=== PATIENT | female | born 1975 | race Caucasian/White ===

== ENCOUNTER 2019-04-30 23:20 | Inpatient (IN) | payer SELFPAY ==
[2019-04-30 23:25] VITALS: BMI 23.8
--- NOTE | 2019-04-30 23:27 | ED_ITS ---
Entered by Nara Crouch, acting as scribe for HPI - Overdose General: Chief Complaint: Overdose Stated Complaint: OVERDOSE Time Seen by Provider: 04/30/19 23:24 Source: patient and EMS Mode of arrival: EMS Limitations: no limitations History of Present Illness: HPI Narrative: 44 yo female presents with intentional overdose. pt states this occured about 10 pm. pt states she took 20 25mg of Seroquel and sliced her Left wrist. pt is unable to stay awake. MD complaint: intentional overdose Onset (ago): day(s) (10 pm) Substance Ingested: seroquel: Strength of Substance: 25 Number of Pills Ingested: 20 Total Dose: 500 Time of Ingestion: 10:00 : Intent: suicide attempt How Overdose Was Discovered: other (EMS called to residents) Context: Accidental Overdose: other (wanted to ) Associated symptoms: depression Treatments Prior to Arrival: IV fluids (by EMS) Review of Systems General: Reports: ROS unobtainable due to medical condition and ROS unobtainable due to mental status Const: Reports: fatigue Physical Exam Const: EXAM LIMITATIONS: altered mental status GENERAL APPEARANCE: lethargic ORIENTATION/CONSCIOUSNESS: Yes lethargic HENMT: COMMON NORMALS: normocephalic, head/scalp atraumatic, hearing grossly normal bilaterally, external ears normal, EAC's normal, external nose normal and moist oral mucous membranes HEAD & SCALP: normal to inspection, normocephalic and atraumatic FACE & SINUS: normal facial exam and face symmetric NOSE: external nose normal and nares normal EXTERNAL EAR: Yes external ears normal EXTERNAL AUDITORY CANAL: EAC's normal MOUTH: oral and palatal mucosa normal and tongue normal Eye: COMMON NORMALS: PERRL, EOMs intact bilaterally, conjunctivae normal and no scleral icterus GENERAL EYE: normal appearance of both eyes and normal light reflex CONJUNCTIVA: Yes conjunctivae normal SCLERA: sclerae normal CORNEA: Yes corneas normal PUPIL: Yes PERRL DIRECT OPHTHALMOSCOPY: Yes normal light reflex Neck/C-Spine: COMMON NORMALS: full ROM, no lymphadenopathy, supple, no meningeal signs and no JVD GENERAL: Yes normal visual inspection and Yes trachea midline CERVICAL SPINE: Yes cervical ROM normal Chest: COMMONS NORMALS: inspection of chest normal and palpation of chest normal Resp: COMMON NORMALS: normal respiratory effort, no retractions, no use of accessory muscles and clear to auscultation bilaterally EFFORT & INSPECTION: Yes able to speak in complete sentences AUSCULTATION: clear to auscultation bilaterally Cardio: COMMON NORMALS: no JVD, regular rate, regular rhythm, S1 normal heart sound, S2 normal heart sound, no gallops, no clicks, no murmurs and no rub JUGULAR VENOUS DISTENTION: no JVD RATE: regular rate RHYTHM: regular rhythm HEART SOUNDS: S1 normal and S2 normal GI: COMMON NORMALS: soft to palpation, non-tender, no hepatosplenomegaly and no masses INSPECTION: Yes normal to inspection PALPATION: Yes soft and Yes no hepatosplenomegaly : COMMON NORMALS: Yes no CVA tenderness BLADDER/KIDNEY EXAM: Yes no CVA tenderness Back/Pelvis: COMMON NORMALS: no CVA tenderness, thoracic and lumbar spine normal to inspection, no thoracic nor lumbar tenderness and thoraco-lumbar ROM normal Extremity: COMMON NORMALS: normal to inspection, full ROM, normal capillary refill, no joint enlargement, no clubbing, cyanosis or edema and no calf tenderness Neuro: COMMON NORMALS: CN's II-XII intact bilaterally, moves all extremities, no focal motor deficits and no sensory deficits noted SENSORIUM/ORIENTATION: Yes lethargic MENINGEAL SIGNS: Yes no meningeal signs Psych: MOOD & AFFECT: Yes depressed mood Skin: WOUNDS: Yes wounds noted (multiple abrasions to L wrist. ) Course Vital Signs: Vital signs: Vital Signs Temperature 97.7 F 04/30/19 23:42 Pulse Rate 102 H 05/01/19 01:09 Respiratory Rate 16 05/01/19 01:09 Blood Pressure 91/60 05/01/19 01:09 Pulse Oximetry 96 05/01/19 01:09 MDM - Overdose MDM Narrative: Medical decision making narrative: The case was reviewed with poison control. We will watch for seizures, depressed central nervous system and QT prolongation. Currently the patient is still very confused and somnolent. Her GCS remains 12-13. The case was reviewed with Dr. Ramírez and she agrees to admit to the ICU until the patient is medically cleared. A 96- hour hold has been placed on the patient. Lab Data: Attestation: I reviewed the patient's lab results. Labs: Lab Results 04/30/19 04/30/19 04/30/19 Range/Units 23:42 23:42 23:42 WBC 5.5 (4.0-10.0) 10^3/ uL RBC 3.83 L (4.1-5.3) 10^6/u L Hgb 12.0 (11.5-15.3) g/dL Hct 36.9 L (37.0-47.0) % MCV 96.3 (81-99) fL MCH 31.3 (28.0-34.0) pg MCHC 32.5 (30.0-36.0) g/dL RDW 12.6 (12.1-15.1) % Plt Count 222 (130-400) 10^3/c mm MPV 8.6 (7.4-10.4) fL Neut % (Auto) 72.3 % Lymph % (Auto) 19.2 % [place] % (Auto) 6.9 % Eos % (Auto) 0.7 % Baso % (Auto) 0.5 % Neut # (Auto) 4.0 (1.8-7.7) 10^3/u L Lymph # (Auto) 1.1 (0.8-4.8) 10^3/u L [place] # (Auto) 0.4 (0.2-0.9) 10^3/u L Eos # (Auto) 0.0 (0.0-0.8) 10^3/u L Baso # (Auto) 0.0 (0.0-0.1) 10^3/u L Nucleated RBC % (a uto) 0 % Nucleated RBCs # 0.0 /100WBC PT (10.5-13.3) SECO NDS INR (0.8-1.2) APTT (23.9-36.7) SECO NDS Specimen Type Sample Site ABG pH (7.35-7.45) ABG pCO2 (35-45) mmHg ABG pO2 (80.0-100.0) mmH g ABG HCO3 (22-26) mmol/L ABG Base Excess (-2.0-2.0) mmol/ L Boy Test Hematocrit (37-47) % O2 Delivery Device FiO2 % Field Machinist ID Sodium 138 (136-145) mmol/L Potassium 3.7 (3.5-5.1) mmol/L Chloride 105 (98-107) mmol/L Carbon Dioxide 19 L (22-29) mmol/L Anion Gap 17.7 (5-19) BUN 12 (6-20) mg/dL Creatinine 1.3 H (0.5-0.9) mg/dL GFR Calculation 44.3 L (90-130) mL/min Glucose 143 H (65-115) mg/dL Calculated Osmolal ity 285 (285-295) mOsm/k g Calcium 8.7 (8.5-10.5) mg/dL Magnesium 2.3 (1.7-2.3) mg/dL Total Bilirubin 0.2 (0.15-1.2) mg/dL AST 27 (0-32) U/L ALT 24 (0-33) U/L Alkaline Phosphata se 66 (35-105) IU/L Creatine Kinase 421 H* (26-192) U/L Troponin T Baselin e (0-10) ng/mL Total Protein 5.9 L (6.6-8.7) g/dL Albumin 3.4 L (3.5-5.2) g/dL Globulin 2.5 (1.3-4.6) g/dL TSH 0.85 (0.27-4.20) uIU/ mL HCG, Qual (Negative) Urine Color (Yellow) Urine Appearance (CLEAR) Urine pH (5-7) Ur Specific Gravit y (1.005-1.030) Urine Protein (Negative) Urine Glucose (UA) (Normal) Urine Ketones (Negative) Urine Blood (Negative) Urine Nitrate (Negative) Urine Bilirubin (NEGATIVE) Urine Urobilinogen (Negative) mg/dL Ur Leukocyte Lauryn ase (Negative) Urine RBC (0-2) /hpf Urine WBC (0-5) /hpf Ur Squamous Epith Cells (0-5) Urine Bacteria (NONE) Salicylates < 0.3 L (3-10) mg/dL Urine Opiates Scre en (Negative) ng/mL Acetaminophen < 5.0 L (10-30) ug/mL Ur Barbiturates Sc reen (Negative) ng/mL Phenytoin 0.8 L (10-20) ug/mL Valproic Acid 2.8 L (50-100) mcg/mL Carbamazepine 2.0 L (4.0-12.0) ug/mL Ur Phencyclidine S crn (Negative) ng/mL Ur Amphetamines Sc reen (Negative) ng/mL U Benzodiazepines Scrn (Negative) ng/mL [place] 0.1 L (0.6-1.2) mmol/L Urine Cocaine Scre en (Negative) ng/mL U Marijuana (THC) Screen (Negative) ng/mL Ethyl Alcohol < 10 (0-10) mg/dL 04/30/19 04/30/19 04/30/19 Range/Units 23:42 23:42 23:42 WBC (4.0-10.0) 10^3/ uL RBC (4.1-5.3) 10^6/u L Hgb (11.5-15.3) g/dL Hct (37.0-47.0) % MCV (81-99) fL MCH (28.0-34.0) pg MCHC (30.0-36.0) g/dL RDW (12.1-15.1) % Plt Count (130-400) 10^3/c mm MPV (7.4-10.4) fL Neut % (Auto) % Lymph % (Auto) % [place] % (Auto) % Eos % (Auto) % Baso % (Auto) % Neut # (Auto) (1.8-7.7) 10^3/u L Lymph # (Auto) (0.8-4.8) 10^3/u L [place] # (Auto) (0.2-0.9) 10^3/u L Eos # (Auto) (0.0-0.8) 10^3/u L Baso # (Auto) (0.0-0.1) 10^3/u L Nucleated RBC % (a uto) % Nucleated RBCs # /100WBC PT 13.90 H (10.5-13.3) SECO NDS INR 1.04 (0.8-1.2) APTT 26.6 (23.9-36.7) SECO NDS Specimen Type Sample Site ABG pH (7.35-7.45) ABG pCO2 (35-45) mmHg ABG pO2 (80.0-100.0) mmH g ABG HCO3 (22-26) mmol/L ABG Base Excess (-2.0-2.0) mmol/ L Boy Test Hematocrit (37-47) % O2 Delivery Device FiO2 % Field Machinist ID Sodium (136-145) mmol/L Potassium (3.5-5.1) mmol/L Chloride (98-107) mmol/L Carbon Dioxide (22-29) mmol/L Anion Gap (5-19) BUN (6-20) mg/dL Creatinine (0.5-0.9) mg/dL GFR Calculation (90-130) mL/min Glucose (65-115) mg/dL Calculated Osmolal ity (285-295) mOsm/k g Calcium (8.5-10.5) mg/dL Magnesium (1.7-2.3) mg/dL Total Bilirubin (0.15-1.2) mg/dL AST (0-32) U/L ALT (0-33) U/L Alkaline Phosphata se (35-105) IU/L Creatine Kinase (26-192) U/L Troponin T Baselin e 11 H (0-10) ng/mL Total Protein (6.6-8.7) g/dL Albumin (3.5-5.2) g/dL Globulin (1.3-4.6) g/dL TSH (0.27-4.20) uIU/ mL HCG, Qual Negative (Negative) Urine Color (Yellow) Urine Appearance (CLEAR) Urine pH (5-7) Ur Specific Gravit y (1.005-1.030) Urine Protein (Negative) Urine Glucose (UA) (Normal) Urine Ketones (Negative) Urine Blood (Negative) Urine Nitrate (Negative) Urine Bilirubin (NEGATIVE) Urine Urobilinogen (Negative) mg/dL Ur Leukocyte Lauryn ase (Negative) Urine RBC (0-2) /hpf Urine WBC (0-5) /hpf Ur Squamous Epith Cells (0-5) Urine Bacteria (NONE) Salicylates (3-10) mg/dL Urine Opiates Scre en (Negative) ng/mL Acetaminophen (10-30) ug/mL Ur Barbiturates Sc reen (Negative) ng/mL Phenytoin (10-20) ug/mL Valproic Acid (50-100) mcg/mL Carbamazepine (4.0-12.0) ug/mL Ur Phencyclidine S crn (Negative) ng/mL Ur Amphetamines Sc reen (Negative) ng/mL U Benzodiazepines Scrn (Negative) ng/mL [place] (0.6-1.2) mmol/L Urine Cocaine Scre en (Negative) ng/mL U Marijuana (THC) Screen (Negative) ng/mL Ethyl Alcohol (0-10) mg/dL 04/30/19 05/01/19 05/01/19 Range/Units 23:45 00:30 00:30 WBC (4.0-10.0) 10^3/ uL RBC (4.1-5.3) 10^6/u L Hgb (11.5-15.3) g/dL Hct (37.0-47.0) % MCV (81-99) fL MCH (28.0-34.0) pg MCHC (30.0-36.0) g/dL RDW (12.1-15.1) % Plt Count (130-400) 10^3/c mm MPV (7.4-10.4) fL Neut % (Auto) % Lymph % (Auto) % [place] % (Auto) % Eos % (Auto) % Baso % (Auto) % Neut # (Auto) (1.8-7.7) 10^3/u L Lymph # (Auto) (0.8-4.8) 10^3/u L [place] # (Auto) (0.2-0.9) 10^3/u L Eos # (Auto) (0.0-0.8) 10^3/u L Baso # (Auto) (0.0-0.1) 10^3/u L Nucleated RBC % (a uto) % Nucleated RBCs # /100WBC PT (10.5-13.3) SECO NDS INR (0.8-1.2) APTT (23.9-36.7) SECO NDS Specimen Type Arterial Sample Site Radial, right ABG pH 7.39 (7.35-7.45) ABG pCO2 38.4 (35-45) mmHg ABG pO2 89.7 (80.0-100.0) mmH g ABG HCO3 23.3 (22-26) mmol/L ABG Base Excess -1.4 (-2.0-2.0) mmol/ L Boy Test Pos Hematocrit 37.9 (37-47) % O2 Delivery Device None FiO2 21.0 % Field Machinist ID [id number] Sodium (136-145) mmol/L Potassium (3.5-5.1) mmol/L Chloride (98-107) mmol/L Carbon Dioxide (22-29) mmol/L Anion Gap (5-19) BUN (6-20) mg/dL Creatinine (0.5-0.9) mg/dL GFR Calculation (90-130) mL/min Glucose (65-115) mg/dL Calculated Osmolal ity (285-295) mOsm/k g Calcium (8.5-10.5) mg/dL Magnesium (1.7-2.3) mg/dL Total Bilirubin (0.15-1.2) mg/dL AST (0-32) U/L ALT (0-33) U/L Alkaline Phosphata se (35-105) IU/L Creatine Kinase (26-192) U/L Troponin T Baselin e (0-10) ng/mL Total Protein (6.6-8.7) g/dL Albumin (3.5-5.2) g/dL Globulin (1.3-4.6) g/dL TSH (0.27-4.20) uIU/ mL HCG, Qual (Negative) Urine Color Yellow (Yellow) Urine Appearance Clear (CLEAR) Urine pH 6 (5-7) Ur Specific Gravit y 1.015 (1.005-1.030) Urine Protein Neg (Negative) Urine Glucose (UA) Norm (Normal) Urine Ketones Negative (Negative) Urine Blood Neg (Negative) Urine Nitrate Negative (Negative) Urine Bilirubin Neg (NEGATIVE) Urine Urobilinogen Norm (Negative) mg/dL Ur Leukocyte Lauryn ase Negative (Negative) Urine RBC Rare (0-2) /hpf Urine WBC Rare (0-5) /hpf Ur Squamous Epith Cells Rare (0-5) Urine Bacteria Trace (NONE) Salicylates (3-10) mg/dL Urine Opiates Scre en Negative (Negative) ng/mL Acetaminophen (10-30) ug/mL Ur Barbiturates Sc reen Negative (Negative) ng/mL Phenytoin (10-20) ug/mL Valproic Acid (50-100) mcg/mL Carbamazepine (4.0-12.0) ug/mL Ur Phencyclidine S crn Negative (Negative) ng/mL Ur Amphetamines Sc reen Positive H (Negative) ng/mL U Benzodiazepines Scrn Negative (Negative) ng/mL [place] (0.6-1.2) mmol/L Urine Cocaine Scre en Negative (Negative) ng/mL U Marijuana (THC) Screen Negative (Negative) ng/mL Ethyl Alcohol (0-10) mg/dL EKG Data^: EKG 1: Attestation: I personally reviewed and interpreted this EKG as follows: EKG interpretation date: 05/01/19 EKG interpretation time: 00:38 Interpretation: Normal sinus rhythm at 105 beats a minute, nonspecific ST-T wave changes. Discharge Plan Discharge Patient Disposition: Admitted As Inpatient Clinical Impression: Drug overdose Condition: Stable Prescriptions: No Action Unable to Assess RF: 0 Referrals: Pedro Pablo Pierre MD [Primary Care Provider] - Coding Level of Care Code ED Laminate Floor Installer for Chg Fwd Exam Comprehensive The documentation recorded by the Miko stein Bridget Annette, accurately reflects the service I personally performed and the decisions made by , Мария Mast Apr 30, 2019 23:20
--- NOTE | 2019-04-30 23:31 | XR_ITS ---
WS: [id number] XR chest 1V portable [id number] REASON FOR EXAM: AMS/OVERDOSE FINDINGS: The heart mediastinum were normal. Chronic interstitial changes both lung miguel no active pneumonia, pleural effusion, pulmonary edema, or mass effect. The hilum and apices are normal. No osseous abnormalities. XR/XR chest 1V portable [id number] IMPRESSION: Mild interstitial changes bilaterally.
--- NOTE | 2019-04-30 23:32 | ECG_ITS ---
Measurements Intervals [place] Rate: 78 P: 81 AR: 129 QRS: 90 QRSD: 82 T: 84 QT: 394 QTc: 451 SINUS RHYTHM WITH SINUS ARRHYTHMIA No previous ECG available for comparison Electronically Signed On 05-01-2019 9:11:46 CDT by Jojo Jimenez [email or web address]
--- NOTE | 2019-04-30 23:37 | PC.NURSE ---
Spoke with LONG Beltrán at Poison Control, advised to watch for SCHOOL CLERK depression, magnesium levels, and other labs.
[2019-04-30 23:42] VITALS: BP 100/66; PULSE 108; RESP 16; TEMP 36.5; O2SAT 95
[2019-04-30 23:53] LABS: ABG PCO2 38.4 mmHg (35-45); ABG PH Result 7.39 (7.35-7.45); Arterial Blood Gas Hematocrit 37.9 % (37-47); Base Excess ABG -1.4 mmol/L (-2.0-2.0); Blood Gas Allen Test Pos; Blood Gas Sample Site Radial, right; Blood Gas Sample Type Arterial; HCO3 ABG 23.3 mmol/L (22-26); PO2 ABG 89.7 mmHg (80.0-100.0)
[2019-04-30 23:55] LABS: Basophils % 0.5 %; Eosinophils % 0.7 %; Hematocrit 36.9 % (37.0-47.0); Lymphocytes # 1.1 10^3/uL (0.8-4.8); Lymphocytes % 19.2 %; Mean Corpuscular HGB Conc 32.5 g/dL (30.0-36.0); Mean Corpuscular Hemoglobin 31.3 pg (28.0-34.0); Mean Corpuscular Volume 96.3 fL (81-99); Mean Platelet Volume 8.6 fL (7.4-10.4); Monocytes # 0.4 10^3/uL (0.2-0.9); Monocytes % 6.9 %; Neutrophils % 72.3 %; Nucleated Red Blood Cells % 0 %; Platelet Count 222 10^3/cmm (130-400); Red Blood Count 3.83 10^6/uL (4.1-5.3); Red Cell Distribution Width 12.6 % (12.1-15.1); White Blood Count 5.5 10^3/uL (4.0-10.0)
[2019-05-01] VITALS (70 sets, daily range): BP systolic 91–156; BP diastolic 52–86; PULSE 60–106; RESP 0–20; TEMP 36.6–37; O2SAT 94–100
[2019-05-01 00:02] LABS: HCG, Serum Qual Negative (Negative)
[2019-05-01 00:08] LABS: INR 1.04 (0.8-1.2)
[2019-05-01 00:09] LABS: Partial Thromboplastin Time 26.6 SECONDS (23.9-36.7)
[2019-05-01 00:13] LABS: Troponin(5th) Baseline 11 ng/mL (0-10)
[2019-05-01 00:49] LABS: Lithium 0.1 mmol/L (0.6-1.2)
[2019-05-01 00:52] LABS: Bacteria Urine TRACE; Bilirubin Urine Neg (NEGATIVE); Blood Urine Neg (Negative); Glucose Urine UA Norm (Normal); Ketones Urine Negative (Negative); Leukocyte Esterase Urine Negative (Negative); Nitrate Urine Negative (Negative); Protein Urine Neg (Negative); RBC Urine RARE /hpf (0-2); Specific Gravity, Urine 1.015 (1.005-1.030); Squamous Epithelial Cell Urine RARE (0-5); Urine Appearance Clear (CLEAR); Urine Color Yellow (Yellow); Urobilinogen Urine Norm (Negative); WBC Urine RARE /hpf (0-5); pH Urine 6 (5-7)
[2019-05-01 00:55] LABS: Amphetamines Screen Urine Positive (Negative); Barbiturates Screen Urine Negative (Negative); Benzodiazepines Screen Urine Negative (Negative); Cocaine Screen Urine Negative (Negative); Opiate Screen Urine Negative (Negative); PCP Screen Urine Negative (Negative); THC Screen Urine Negative (Negative)
[2019-05-01 00:59] LABS: Alanine Aminotransferase 24 U/L (0-33); Albumin Level 3.4 g/dL (3.5-5.2); Alkaline Phosphatase 66 IU/L (35-105); Aspartate Amino Transferase 27 U/L (0-32); Blood Urea Nitrogen 12 mg/dL (6-20); Calcium 8.7 mg/dL (8.5-10.5); Carbon Dioxide 19 mmol/L (22-29); Globulin 2.5 g/dL (1.3-4.6); Glomerular Filtration Rate 44.3 mL/min (90-130); Glucose 143 mg/dL (65-115); Magnesium 2.3 mg/dL (1.7-2.3); Phenytoin Dilantin 0.8 ug/mL (10-20); Thyroid Stimulating Hormone 0.85 uIU/mL (0.27-4.20); Total Bilirubin 0.2 mg/dL (0.15-1.2); Total Protein 5.9 g/dL (6.6-8.7); Valproic Acid Level 2.8 mcg/mL (50-100)
[2019-05-01 01:03] LABS: Acetaminophen < 5.0 ug/mL (10-30); Alcohol Level < 10 mg/dL (0-10); Salicylate < 0.3 mg/dL (3-10)
[2019-05-01 01:04] LABS: Creatine Phosphokinase 421 U/L (26-192)
[2019-05-01 01:10] LABS: Anion Gap 17.7 (5-19); Chloride 105 mmol/L (98-107); Osmolality Calculated 285 mOsm/kg (285-295); Potassium 3.7 mmol/L (3.5-5.1); Sodium 138 mmol/L (136-145)
--- NOTE | 2019-05-01 01:32 | ECG_ITS ---
Measurements Intervals [place] Rate: 105 P: 83 WA: 124 QRS: 92 QRSD: 72 T: 78 QT: 356 QTc: 472 SINUS TACHYCARDIA BORDERLINE RIGHT AXIS DEVIATION [QRS AXIS > 90] ABNORMAL RHYTHM ECG INTERPRETATION BASED ON A DEFAULT AGE OF 40 YEARS No previous ECG available for comparison Electronically Signed On 05-01-2019 9:12:32 CDT by Jojo Jimenez [id number]
[2019-05-01 02:07] LABS: Troponin 5 2HR 12.19 ng/mL (0-10); Troponin 5 2HR Delta 1.19 ABS# (0-10)
[2019-05-01] MEDS: sodium chloride 0.9% 1,000 ML 999 ML IV ×2 (02:40→02:46)
--- NOTE | 2019-05-01 02:43 | P.HP_ITS ---
Providers/Chief Complaint Admitting Physician: Jessica Ramírez MD Primary Care Provider: Pedro Pablo Pierre MD Chief Complaint: OVERDOSE History of Present Illness Mary Peres is a 44 year old female brought by EMS with h/o intentional drug overdose with seroquel. Patient states she may have taken ~20 pills but is unable to say for sure. she is lethargic, drowsy, difficult to stay awake. BP 90/60, HR 102/min, RR 16. Labs notable for cr 1.3, CK 421, negative bHCG, urine drug screen + amphetamines. Alcohol negative. No other past history known at this time other than that obtained from notes dating back to 2009. Review of Systems General: Reports: ROS unobtainable due to medical condition and ROS unobtainable due to mental status Medications/Allergies Home Medications Medication Instructions Recorded Confirmed Last Taken Type Unable to Assess 04/30/19 04/30/19 Unknown History Allergies Allergy/AdvReac Type Severity Reaction Status Date / Time No Known Allergies Allergy Verified 04/30/19 23:25 PFSH Acute PFSH: Medical History (Updated 05/01/19 @ 03:26 by Jessica Ramírez MD) Arthritis of sacroiliac joint Neuralgia Piriformis syndrome Trochanteric bursitis Vitals/I&O/Wt Last Vital Signs Temp 97.7 F 04/30/19 23:42 Pulse 102 H 05/01/19 01:09 Resp 16 05/01/19 01:09 BP 91/60 05/01/19 01:09 Pulse Ox 96 05/01/19 01:09 Weight last 48 hrs Weight 57.153 kg Physical Exam Narrative: EXAM NARRATIVE: GEN: Drowsy, difficult to awaken, opens eyes to calling name and states her correct name, but doesn't answer any other questions. CVS: S1S2 N RS: CTA B/L Abd: Soft, nt/nd , bs+ RES HABILITATION ASSISTANT: Drowsy, as above Urinary Catheter Management^: Erazo: Cath Placed During This Visit: yes Reason for Continuing Indwelling Catheter: Other Urinary Catheter Date of Insertion: 05/01/19 Urinary Catheter Time of Insertion: 00:33 Data : 04/30/19 23:42 04/30/19 23:42 A&P Assessment and plan (1) Drug overdose: Status: Acute Qualifiers: Encounter type: initial encounter Injury intent: intentional self-harm Qualified Code(s): T50.902A - Poisoning by unspecified drugs, medicaments and biological substances, intentional self-harm, initial encounter Code(s): T50.901A - Poisoning by unspecified drugs, medicaments and biological substances, accidental (unintentional), initial encounter (2) AMS (altered mental status): Status: Acute Code(s): R41.82 - Altered mental status, unspecified (3) Hypotension: Status: Acute Code(s): I95.9 - Hypotension, unspecified (4) Rhabdomyolysis: Status: Acute Code(s): M62.82 - Rhabdomyolysis (5) RAMO (acute kidney injury): Status: Acute Code(s): N17.9 - Acute kidney failure, unspecified Additional A&P Information Admit to ICU on 96 hr hold for intentional drug overdose No history available from patient. Listed phone numbers are not answered 1. Atypical antipsychotic overdose) Patient exhibiting lethargy, drowsiness, hypotension, tachycardia, miosis, all appearing to be c/w alpha 1 effects of antipsychotics. Supportive treatment with 2L IVF bolus followed by NS @ 150cc/hr If refractory hypotension develops, will use levophed infusion with goal to titrate MAP > 65 Monitor qtc interval, currently at [address] head to r/o acute intracranial process, few bruises noted over body, unclear history of fall or trauma. Currently protecting her airway Seizure precautions Aspiration precautions 2. Rhabdomyolysis : IVF hydration as above 3. RAMO : IVF resuscitation Full code Attestations Medical Necessity Statement*: expect >2midnight admission for above reasons incl close monitoring, 96 hr hold Coding Level of Care Code Acute Parachute/Combatant Diver Officer for [facility] Fwd Diagnoses Drug overdose T50. Encounter type: initial encounter Injury intent: intentional self-harm AMS (altered mental status) R41.82 Hypotension I95.9 Rhabdomyolysis M62.82 RAMO (acute kidney injury) N17.9
--- NOTE | 2019-05-01 03:08 | CTR_ITS ---
PROCEDURE INFORMATION: Exam: CT Head Without Contrast Exam date and time: 05/01/2019 3:33 AM Age: 44 years old Clinical indication: Altered mental status/memory loss; Additional info: AMS TECHNIQUE: Imaging protocol: Computed tomography of the head without contrast. Total DLP: 733.79 mGy-cm Radiation optimization: All CT scans at this facility use at least one of these dose optimization techniques: automated exposure control; mA and/or kV adjustment per patient size (includes targeted exams where dose is matched to clinical indication); or iterative reconstruction. COMPARISON: No relevant prior studies available. FINDINGS: Brain: Normal. No hemorrhage. Unremarkable white matter. No mass effect. Ventricles: Normal. No ventriculomegaly. Bones/joints: Unremarkable. No acute fracture. Sinuses: Mucosal thickening and fluid is seen within the ethmoidal sinuses bilaterally. Mastoid air cells: Visualized mastoid air cells are well aerated. Soft tissues: Unremarkable. CT/CT head wo con* [id number] IMPRESSION: There are no acute intracranial findings. Radiation Dose CTDIVOL = (mGy): DLP = 733.79 (mGy-cm)
--- NOTE | 2019-05-01 03:21 | PC.NURSE ---
Called report to LONG Munoz in ICU
[2019-05-01] MEDS: sodium chloride 0.9% 1,000 ML 150 ML IV (04:56)
[2019-05-01] MEDS: morphine 4 mg/mL SDV 1 mL 2 MG IVP (05:19)
--- NOTE | 2019-05-01 05:32 | ECG_ITS ---
Measurements Intervals [place] Rate: 105 P: 84 MO: 121 QRS: 91 QRSD: 71 T: 80 QT: 352 QTc: 467 SINUS TACHYCARDIA BORDERLINE RIGHT AXIS DEVIATION [QRS AXIS > 90] MODERATE T-WAVE ABNORMALITY, CONSIDER ANTERIOR ISCHEMIA [-0.1+ mV T WAVE IN V3/V4] No previous ECG available for comparison Electronically Signed On 05-01-2019 9:12:37 CDT by Jojo Jimenez [id number]
[2019-05-01 07:01] LABS: Eosinophils # 0.1 10^3/uL (0.0-0.8); Eosinophils % 1.2 %; Hematocrit 35.5 % (37.0-47.0); Hemoglobin 11.3 g/dL (11.5-15.3); Lymphocytes # 1.4 10^3/uL (0.8-4.8); Lymphocytes % 33.7 %; Mean Corpuscular HGB Conc 31.8 g/dL (30.0-36.0); Mean Corpuscular Hemoglobin 31.3 pg (28.0-34.0); Mean Corpuscular Volume 98.3 fL (81-99); Mean Platelet Volume 8.6 fL (7.4-10.4); Monocytes # 0.3 10^3/uL (0.2-0.9); Monocytes % 8.1 %; Neutrophils # 2.3 10^3/uL (1.8-7.7); Neutrophils % 55.8 %; Nucleated Red Blood Cells % 0 %; Platelet Count 195 10^3/cmm (130-400); Red Blood Count 3.61 10^6/uL (4.1-5.3); Red Cell Distribution Width 12.9 % (12.1-15.1); White Blood Count 4.1 10^3/uL (4.0-10.0)
[2019-05-01 07:27] LABS: Anion Gap 11.2 (5-19); Blood Urea Nitrogen 13 mg/dL (6-20); Carbon Dioxide 23 mmol/L (22-29); Chloride 113 mmol/L (98-107); Creatine Phosphokinase 299 U/L (26-192); Glomerular Filtration Rate 77.6 mL/min (90-130); Glucose 101 mg/dL (65-115); Osmolality Calculated 292 mOsm/kg (285-295); Potassium 4.2 mmol/L (3.5-5.1); Sodium 143 mmol/L (136-145)
[2019-05-01 07:43] LABS: Troponin 5 6HR 12.63 ng/mL (0-10); Troponin 5 6HR Delta 1.63 ng/L (0-12)
--- NOTE | 2019-05-01 09:12 | P.PN_ITS ---
Subjective Subjective: Interval history: Chart reviewed including old [facility] records. No urine output documented. BP seems to be gradually improving, AM labs noted, decreasing CPK, normal renal function. On 96 hr hold, paperwork in chart. Sitter at bedside, patient has been asleep for much of the day so far, arousable to verbal and tactile stimulation for brief periods of time, quite somnolent otherwise. States that she took some pills with the intention of harming herself. Has some superficial lacerations on the left forearm. Continue n.p.o. until more consistently awake. Medications: Reviewed: Yes Medication Review Details: Active Medications Generic Name Dose Route Start Last Admin Trade Name Freq PRN Reason Stop Dose Admin Sodium Chloride 1,000 mls @ 150 m ls/hr 05/01/19 03:54 05/01/19 04:56 Sodium Chloride 0.9% IV 150 mls/hr .Q6H40M QUOC Administration Morphine Sulfate 2 mg 05/01/19 03:54 05/01/19 05:19 Morphine IVP 2 mg Q4H PRN Administration SEVERE PAIN Naloxone HCl 0.1 mg 05/01/19 03:54 Narcan IVP Q2M PRN OPIATERV Ondansetron HCl 4 mg 05/01/19 03:54 Zofran IVP Q8H PRN vomiting, or N/V if npo Penicillins Allergy (Verified 05/01/19 04:19) Unknown Vitals/I&O/Wt Last Vital Signs Temp 98 F 05/01/19 03:54 Pulse 88 05/01/19 08:00 Resp 18 05/01/19 08:00 BP 108/69 05/01/19 08:00 Pulse Ox 97 05/01/19 08:00 04/30/19 05/01/19 05/01/19 22:59 06:59 14:59 Intake Total 1099.9 / 1099.9 Balance 1099.9 / 1099.9 Weight last 48 hrs Weight 57.153 kg Physical Exam Const: COMMON NORMALS: no apparent distress, oriented x3 and alert GENERAL APPEARANCE: cooperative and comfortable ORIENTATION/CONSCIOUSNESS: Yes awake, Yes oriented to person, Yes oriented to place and Yes oriented to time HENMT: COMMON NORMALS: normocephalic, head/scalp atraumatic and hearing grossly normal bilaterally HEAD & SCALP: normocephalic and atraumatic MOUTH: moist mucous membranes abnormal Details: parched Eye: COMMON NORMALS: PERRL, EOMs intact bilaterally and conjunctivae normal CONJUNCTIVA: Yes conjunctivae normal PUPIL: Yes PERRL Neck/C-Spine: COMMON NORMALS: full ROM GENERAL: Yes normal visual inspection and Yes trachea midline Resp: COMMON NORMALS: normal respiratory effort, no retractions, no use of accessory muscles and clear to auscultation bilaterally EFFORT & INSPECTION: Yes able to speak in complete sentences, Yes symmetric chest movement and No tachypneic AUSCULTATION: clear to auscultation bilaterally Cardio: COMMON NORMALS: regular rate, regular rhythm, S1 normal heart sound, S 2 normal heart sound and no murmurs RATE: regular rate RHYTHM: regular rhythm HEART SOUNDS: S1 normal and S2 normal GI: COMMON NORMALS: normal to inspection, nondistended, normoactive bowel sounds, soft to palpation and non-tender PALPATION: Yes soft : BLADDER/KIDNEY EXAM: Yes catheter in place Catheter type (Female): urethral Extremity: COMMON NORMALS: normal to inspection, full ROM and no clubbing, cyanosis or edema; negative for no pedal edema Neuro: COMMON NORMALS: oriented x3, moves all extremities, no focal motor deficits and no sensory deficits noted SENSORIUM/ORIENTATION: Yes alert, Yes oriented to person, Yes oriented to place, Yes oriented to time and Yes somnolent Psych: COMMON NORMALS: mental status grossly normal, thought process normal, cooperative, affect normal and speech normal SPEECH: Yes normal speech THOUGHT PROCESS: normal thought process Skin: COMMON NORMALS: no rashes or lesions noted, no jaundice, no petechiae and no mottling NARRATIVE SKIN EXAM: -Noted superficial linear lacerations on left forearm GENERAL SKIN EXAM: no rashes or lesions noted Urinary Catheter Management^: Erazo: Cath Placed During This Visit: yes Reason for Continuing Indwelling Catheter: Accurate Measurement of Urinary Output in Critically Ill Patients Urinary Catheter Date of Insertion: 05/01/19 Urinary Catheter Time of Insertion: 00:33 Data : 05/01/19 05:49 05/01/19 05:49 A&P Assessment and plan (1) Drug overdose: -Review of [facility] records shows visit to pain clinic in 11/2012 with concern for possible diversion or misuse of opiates -Minimal history available directly from patient due to noted altered mental status on admission and no collateral information -Currently protecting her airway, seems to be more hemodynamically stable -Continue neuro checks, seizure/fall/aspiration precautions -Urine drug screen positive for amphetamines; negative for salicylates, acetaminophen, alcohol; beta-hCG negative -Continue to closely monitor vital signs -96-hour hold, one-on-one monitoring -We will need psych evaluation once medically stable -Hold sedating medications Status: Acute Qualifiers: Encounter type: initial encounter Injury intent: intentional self-harm Qualified Code(s): T50.902A - Poisoning by unspecified drugs, medicaments and biological substances, intentional self-harm, initial encounter Code(s): T50.901A - Poisoning by unspecified drugs, medicaments and biological substances, accidental (unintentional), initial encounter (2) Rhabdomyolysis: -CPK trending down with IV fluid hydration Status: Acute Qualifiers: Rhabdomyolysis type: non-traumatic Qualified Code(s): M62.82 - Rhabdomyolysis Code(s): M62.82 - Rhabdomyolysis (3) RAMO (acute kidney injury): -Renal function normalized following IV fluid hydration Status: Acute Code(s): N17.9 - Acute kidney failure, unspecified (4) Hypotension: -Likely secondary to medication overdose -Seems to be more hemodynamically stable with IV fluid hydration; pressor support to maintain MAP > 65 if needed -Continue to monitor vital signs closely Status: Acute Qualifiers: Hypotension type: unspecified hypotension type Qualified Code(s): I95.9 - Hypotension, unspecified Code(s): I95.9 - Hypotension, unspecified Additional A&P Information -Fibromyalgia -hx of irritable bowel syndrome -DJD, Piriformis syndrome; had previously been following up with Dr. Gong -Keep n.p.o. until consistently awake and alert -DVT ppx not needed as low risk; however, if prolonged immobilization, may need AC -Dispo: pending psych evaluation -Code status: FULL code -continue ICU care, on 96 hr hold Attestations Medical Necessity Statement*: Patient requires hospitalization for continued management of medication overdose pending improvement in mental status, on 96 hr hold. Time Spent in Patient Care: Greater than 35 minutes (>than 50% of time sp ent in counselling and/or direct pt care on unit) . Coding Level of Care Code Acute Recruiting Consultant for Chg Fwd Exam Comprehensive Diagnoses Drug overdose T50.902A Encounter type: initial encounter Injury intent: intentional self-harm Rhabdomyolysis M62.82 Rhabdomyolysis type: non-traumatic RAMO (acute kidney injury) N17.9 Hypotension I95.9 Hypotension type: unspecified hypotension type
[2019-05-01] MEDS: sodium chloride 0.9% 1,000 ML 100 ML IV ×2 (11:19→23:13)
[2019-05-01] MEDS: lanolin oint 7 gm 1 APPLIC TOPICAL (18:47)
[2019-05-02] VITALS (25 sets, daily range): BP systolic 115–163; BP diastolic 70–85; PULSE 58–93; RESP 7–75; TEMP 36.7–37.3; O2SAT 97–100
[2019-05-02 06:14] LABS: Creatine Phosphokinase 120 U/L (26-192)
[2019-05-02] MEDS: sodium chloride 0.9% 1,000 ML 100 ML IV (08:59)
--- NOTE | 2019-05-02 12:59 | P.PN_ITS ---
Subjective Subjective: Interval history: Patient seen and examined, sitter at bedside, easily arousable, alert and oriented x3. Denies SI currently. Pending psychiatry evaluation. Hemodynamically stable. Tolerating oral intake without difficulty. No acute overnight events reported. No complaints currently. Will discontinue Erazo catheter. Medications: Reviewed: Yes Medication Review Details: Active Medications Generic Name Dose Route Start Last Admin Trade Name Freq PRN Reason Stop Dose Admin Sodium Chloride 1,000 mls @ 100 m ls/hr 05/01/19 03:54 05/02/19 08:59 Sodium Chloride 0.9% IV 100 mls/hr .Q10H QUOC Administration Lanolin 1 applic 05/01/19 18:19 05/01/19 18:47 Lanolin Oint TOPICAL 1 applic PRN PRN Administration DRYNESS Morphine Sulfate 2 mg 05/01/19 03:54 05/01/19 05:19 Morphine IVP 2 mg Q4H PRN Administration SEVERE PAIN Naloxone HCl 0.1 mg 05/01/19 03:54 Narcan IVP Q2M PRN OPIATERV Ondansetron HCl 4 mg 05/01/19 03:54 Zofran IVP Q8H PRN vomiting, or N/V if npo Penicillins Allergy (Verified 05/01/19 04:19) Unknown Vitals/I&O/Wt Last Vital Signs Temp 98.4 F 05/02/19 06:08 Pulse 62 05/02/19 08:00 Resp 17 05/02/19 08:00 BP 133/77 05/02/19 08:00 Pulse Ox 98 05/02/19 08:00 05/01/19 05/02/19 05/02/19 22:59 06:59 14:59 Intake Total 1000 / 1922.5 1096.667 / 1096.667 Output Total 3450 / 3450 1400 / 4850 1700 / 1700 Balance -2450 / -1527.5 -1400 / -2927.5 -603.333 / -603.333 Weight last 48 hrs Weight 57.153 kg Physical Exam Const: COMMON NORMALS: no apparent distress, oriented x3 and alert GENERAL APPEARANCE: cooperative and comfortable ORIENTATION/CONSCIOUSNESS: Yes awake, Yes oriented to person, Yes oriented to place and Yes oriented to time HENMT: COMMON NORMALS: normocephalic, head/scalp atraumatic and hearing grossly normal bilaterally HEAD & SCALP: normocephalic and atraumatic MOUTH: moist mucous membranes abnormal Details: parched Eye: COMMON NORMALS: PERRL, EOMs intact bilaterally and conjunctivae normal CONJUNCTIVA: Yes conjunctivae normal PUPIL: Yes PERRL Neck/C-Spine: COMMON NORMALS: full ROM GENERAL: Yes normal visual inspection and Yes trachea midline Resp: COMMON NORMALS: normal respiratory effort, no retractions, no use of accessory muscles and clear to auscultation bilaterally EFFORT & INSPECTION: Yes able to speak in complete sentences, Yes symmetric chest movement and No tachypneic AUSCULTATION: clear to auscultation bilaterally Cardio: COMMON NORMALS: regular rate, regular rhythm, S1 normal heart sound, S2 normal heart sound and no murmurs RATE: regular rate RHYTHM: regular rhythm HEART SOUNDS: S1 normal and S2 normal GI: COMMON NORMALS: normal to inspection, nondistended, normoactive bowel sounds, soft to palpation and non-tender PALPATION: Yes soft : BLADDER/KIDNEY EXAM: Yes catheter in place Catheter type (Female): urethral Extremity: COMMON NORMALS: normal to inspection, full ROM and no clubbing, cyanosis or edema; negative for no pedal edema Neuro: COMMON NORMALS: oriented x3, moves all extremities, no focal motor deficits and no sensory deficits noted SENSORIUM/ORIENTATION: Yes alert, Yes oriented to person, Yes oriented to place and Yes oriented to time Psych: COMMON NORMALS: mental status grossly normal, thought process normal, cooperative, affect normal and speech normal SPEECH: Yes normal speech THOUGHT PROCESS: normal thought process Skin: COMMON NORMALS: no rashes or lesions noted, no jaundice, no petechiae and no mottling NARRATIVE SKIN EXAM: -Noted superficial linear lacerations on left forearm GENERAL SKIN EXAM: no rashes or lesions noted Urinary Catheter Management^: Erazo: Cath Placed During This Visit: yes Reason for Continuing Indwelling Catheter: Accurate Measurement of Urinary Output in Critically Ill Patients Urinary Catheter Date of Insertion: 05/01/19 Urinary Catheter Time of Insertion: 00:33 Data : 05/01/19 05:49 05/01/19 05:49 A&P Assessment and plan (1) Drug overdose: -Review of [facility] records shows visit to pain clinic in 11/2012 with concern for possible diversion or misuse of opiates -Minimal history available directly from patient due to noted altered mental status on admission and no collateral information but she reports taking multiple Seroquel pills with the intention of self harm when asked by publications writer -Currently protecting her airway, seems to be more hemodynamically stable -Continue neuro checks, seizure/fall/aspiration precautions -Urine drug screen positive for amphetamines; negative for salicylates, acetaminophen, alcohol; beta-hCG negative -Continue to closely monitor vital signs -96-hour hold, one-on-one monitoring -Psych evaluation today -Hold sedating medications -d/c Erazo catheter today Status: Acute Qualifiers: Encounter type: initial encounter Injury intent: intentional self-harm Qualified Code(s): T50.902A - Poisoning by unspecified drugs, medicaments and biological substances, intentional self-harm, initial encounter Code(s): T50.901A - Poisoning by unspecified drugs, medicaments and biological substances, accidental (unintentional), initial encounter (2) Rhabdomyolysis: -CPK normalized; d/c IV fluid hydration Status: Resolved Qualifiers: Rhabdomyolysis type: non-traumatic Qualified Code(s): M62.82 - Rhabdomyolysis Code(s): M62.82 - Rhabdomyolysis (3) RAMO (acute kidney injury): -Renal function normalized following IV fluid hydration Status: Resolved Code(s): N17.9 - Acute kidney failure, unspecified (4) Hypotension: -Likely secondary to medication overdose -BP wnl; continue to monitor vital signs closely Status: Resolved Qualifiers: Hypotension type: unspecified hypotension type Qualified Code(s): I95.9 - Hypotension, unspecified Code(s): I95.9 - Hypotension, unspecified Additional A&P Information -Fibromyalgia -hx of irritable bowel syndrome -DJD, Piriformis syndrome; had previously been following up with Dr. Gong -regular diet as tolerated -DVT ppx not needed as low risk; however, if prolonged immobilization, may need AC -Dispo: pending psych evaluation -Code status: FULL code -continue ICU care, on 96 hr hold; she is medically stable to transfer to NPU if appropriate per Psych Attestations Medical Necessity Statement*: Patient requires hospitalization for continued care following intentional medication overdose, on 96 hr hold, pending psychiatry evaluation Time Spent in Patient Care: 16 - 35 minutes (>than 50% of time spent in counselling and/or direct pt care on unit) . Coding Level of Care Code Acute Logging Engineer for Chg Fwd Diagnoses Drug overdose T50.902A Encounter type: initial encounter Injury intent: intentional self-harm Rhabdomyolysis M62.82 Rhabdomyolysis type: non-traumatic RAMO (acute kidney injury) N17.9 Hypotension I95.9 Hypotension type: unspecified hypotension type
[2019-05-02] MEDS: fixodent 39 gm Tube 1 APPLIC DENTAL (16:37)
--- NOTE | 2019-05-02 17:05 | PC.NURSE ---
transfer report called to [facility]. Patient taken to NPU via wheelchair.
--- NOTE | 2019-05-02 17:48 | P.CONIM_ITS ---
Providers/Reason for Consult Consulting Physican/Specialty*: Alan Phillips MD/psychiatry Reason for Consult*: The patient is said to have taken an overdose of Seroquel. She also is positive for methamphetamine. Requesting Physcian: Shelby Cedeno MD Attending Physician: Shelby Cedeno MD Primary Care Provider: Pedro Pablo Pierre MD Psych Consult HPI History of Present Illness Mary Peres is a 44 year old female who took some 500 mg of Seroquel and cut her left wrist in an attempt at suicide. She verbalized a desire to . She must have theo for some time on the floor; her CPK was 421 but has been descending since that time. She was diagnosed, naturally, with rhabdomyolysis. The source of the discord and unhappiness is not yet known to me. She does have a past history of depression and prior suicide attempt. There are notes going back to 2009. Meds Current Medications: Current Medications Generic Name Dose Route Start Last Admin Trade Name Freq PRN Reason Stop Dose Admin Denture Adhesive 1 applic 05/02/19 16:27 05/02/19 16:37 Fixodent DENTAL 1 tube PRN PRN Administration denture adhesive Lanolin 1 applic 05/01/19 18:19 05/01/19 18:47 Lanolin Oint TOPICAL 1 applic PRN PRN Administration DRYNESS PFSH NPU PFSH: Medical History (Updated 05/02/19 @ 18:30 by Alan Phillips) Arthritis of sacroiliac joint Neuralgia Piriformis syndrome Trochanteric bursitis Mental Status Exam MSE Comments: Patient is more awake and alert now. She is oriented and nonpsychotic. She is in ICU bed 8, somewhat disheveled. Mood is dysphoric, affect is flat. The patient makes good eye contact and is cooperative in her history giving. She understands the need for psychiatric intervention and is willing to accept. Thought processes are integrated and free of any racing, blocking or looseness of association. There is no evidence of psychosis such as but not limited to hallucination, delusion, ideas of reference. Speech is of normal rate and volume, without dysarthria aprosody or pressure. Vitals/I&O/Wt Last Vital Signs Temp 98.0 F 05/02/19 12:00 Pulse 72 05/02/19 14:00 Resp 75 H 05/02/19 16:00 BP 154/84 05/02/19 16:00 Pulse Ox 99 05/02/19 16:00 05/02/19 05/02/19 05/02/19 07:59 15:59 23:59 Intake Total 1096.667 Output Total 1400 1700 Balance -1400 -603.333 Weight last 48 hrs Weight 126 lb Physical Exam Urinary Catheter Management^: Erazo: Cath Placed During This Visit: yes Reason for Continuing Indwelling Catheter: Accurate Measurement of Urinary Output in Critically Ill Patients Urinary Catheter Date of Insertion: 05/01/19 Urinary Catheter Time of Insertion: 00:33 A&P Assessment and plan (1) Major depressive disorder, recurrent episode: The patient will be transferred to NPU and have psychosocial evaluation, involvement in millieu and, when appropriate, pharmacotherapy. At this moment, I am not eager to begin the latter until the patient is more medically stabilized. Status: Acute Code(s): F33.9 - Major depressive disorder, recurrent, unspecified (2) Drug overdose: This is a derivative of her mood disorder and her methamphetamine use disorder. Status: Acute Qualifiers: Encounter type: initial encounter Injury intent: intentional self-harm Qualified Code(s): T50.902A - Poisoning by unspecified drugs, medicaments and biological substances, intentional self-harm, initial encounter Code(s): T50.901A - Poisoning by unspecified drugs, medicaments and biological substan hiram, accidental (unintentional), initial encounter (3) Methamphetamine dependence: The patient will be referred for cognitive behavioral therapy and for a rehabilitation program. In the meantime, any withdrawal symptoms will be symptomatically managed. Status: Acute Code(s): F15.20 - Other stimulant dependence, uncomplicated Involuntary Hold Information 96 Hour Hold: 96 Hour Involuntary Admission: No 21 Day Hold: 21 Day Involuntary Hold: No Other Hold: Other Involuntary Hold (indicate): No Attestations NPU Medical Necessity Statement*: I anticipate 5-7 midnights additional stay Time Spent in Patient Care: Greater than 35 minutes (>than 50% of time spent in counselling and/or direct pt care on unit) . Coding Level of Care Code Acute Tying Machine Operator Lumber for Srinivas Diaz Diagnoses Major depressive disorder, recurrent episode F33.9 Drug overdose T50.902A Encounter type: initial encounter Injury intent: intentional self-harm Methamphetamine dependence F15.20
[2019-05-02] MEDS: trazodone 50 mg Tablet PO (21:10)
[2019-05-02] MEDS: acetaminophen 325 mg Tablet 650 MG PO (21:30)
[2019-05-03 06:00] VITALS: BP 109/72; PULSE 71; RESP 18; TEMP 36.8; O2SAT 97
[2019-05-03] MEDS: acetaminophen 325 mg Tablet 650 MG PO ×2 (12:32→20:50)
--- NOTE | 2019-05-03 12:51 | P.PN_ITS ---
Subjective NPU Subjective: Interval history: The patient is feeling less despondent. Also, her creatinine kinase has dropped into the normal range. She says her muscles are sore but she feels fine. She no longer feels hopeless and overwhelmed. She has a home to return to. We talked about how to keep safe and reach out for help once [facility]. We also talked about methamphetamine and its relationship to her near fatal overdose. She remembers that fluoxetine helped her with depression a long time ago. We talked about the risks and benefits and we elect to initiate it at 10 mg daily. Medications: Reviewed: Yes Medication Review Details: Current Medications Acetaminophen (Tylenol) 650 mg PO Q4H PRN PRN Reason: MILD PAIN Last Admin: 05/03/19 12:32 Dose: 650 mg Documented by: Benztropine Mesylate (Cogentin) 1 mg PO BID PRN PRN Reason: Mild Extrapyramidal symptoms Camphor/Menthol/Phenol (Blistex) 1 applic TOPICAL Q1H PRN PRN Reason: DRYNESS Denture Adhesive (Fixodent) 1 applic DENTAL PRN PRN PRN Reason: denture adhesive Last Admin: 05/02/19 16:37 Dose: 1 tube Documented by: Diphenhydramine HCl (Benadryl) 50 mg IM ONCE PRN PRN Reason: Severe Extrapyramidal Symptoms Diphenhydramine HCl (Benadryl) 50 mg IM Q4H PRN PRN Reason: Severe Aggression Fluoxetine HCl (Prozac) 10 mg PO DAILY QUOC Haloperidol (Haldol) 5 mg PO Q4H PRN PRN Reason: AGITATION Haloperidol Lactate (Haldol Inj) 5 mg IM Q4H PRN PRN Reason: Severe Aggression Hydroxyzine Pamoate (Vistaril) 50 mg PO Q6H PRN PRN Reason: ANXIETY Lanolin (Lanolin Oint) 1 applic TOPICAL PRN PRN PRN Reason: DRYNESS Last Admin: 05/01/19 18:47 Dose: 1 applic Documented by: Loperamide HCl (Imodium Capsule) 2 mg PO Q6H PRN PRN Reason: DIARRHEA Lorazepam (Ativan) 2 mg IM Q4H PRN PRN Reason: Severe Aggression Nicotine (Nicoderm 21 Mg Patch) 1 patch TRANSDERMA DAILY PRN PRN Reason: NICOTINE WITHDRAWAL Nicotine Polacrilex (Nicorette) 2 mg BUCCAL Q2H PRN PRN Reason: NICOTINE WITHDRAWAL Olanzapine (Zyprexa Zydis) 5 mg PO Q4H PRN PRN Reason: Agitation/Psychosis Ondansetron HCl (Zofran) 4 mg PO Q6H PRN PRN Reason: NAUSEA AND VOMITING Trazodone HCl (Desyrel) 50 mg PO BEDTIME PRN PRN Reason: SLEEP Last Admin: 05/02/19 21:10 Dose: 50 mg Documented by: Mental Status Exam MSE Comments: This is a 44-year-old female who presents at her stated age. She is clean and well-groomed. Mood is less dysphoric. Affect is brightening. Thought processes are integrated and free of any racing, blocking or looseness of association. There is no evidence of psychosis, such as but not limited to hallucination, delusion or ideas of reference. Speech is of normal rate and volume without dysarthria, aprosody or pressure. Cognitive functions are intact, including orientation, recent and short-term memory, reason, insight and judgment. Fund of knowledge is commensurate with her social status and vocabulary. She denies suicidal or homicidal ideation, plan or intent. Vitals/I&O/Wt Last Vital Signs Temp 98.2 F 05/03/19 06:00 Pulse 71 05/03/19 06:00 Resp 18 05/03/19 06:00 BP 109/72 05/03/19 06:00 Pulse Ox 97 05/03/19 06:00 Physical Exam Urinary Catheter Management^: Erazo: Cath Placed During This Visit: yes Reason for Continuing Indwelling Catheter: Accurate Measurement of Urinary Output in Critically Ill Patients Urinary Catheter Date of Insertion: 05/01/19 Urinary Catheter Time of Insertion: 00:33 Data NPU : 05/01/19 05:49 05/01/19 05:49 A&P Assessment and plan (1) Drug overdose: Status: Acute Qualifiers: Encounter type: initial encounter Injury intent: intentional self-harm Qualified Code(s): T50.902A - Poisoning by unspecified drugs, medicaments and biological substances, intentional self-harm, initial encounter Code(s): T50.901A - Poisoning by unspecified drugs, medicaments and biological substances, accidental (unintentional), initial encounter (2) Major depressive disorder, recurrent episode: Status: Acute Code(s): F33.9 - Major depressive disorder, recurrent, unspecified (3) Methamphetamine dependence: Status: Acute Code(s): F15.20 - Other stimulant dependence, uncomplicated Involuntary Hold Information 96 Hour Hold: 96 Hour Involuntary Admission: No 21 Day Hold: 21 Day Involuntary Hold: No Other Hold: Other Involuntary Hold (indicate): No Attestations NPU Medical Necessity Statement*: I anticipate 2 to 3 midnights at least 2 midnights' additional stay is indicated. Time Spent in Patient Care: Greater than 35 minutes (>than 50% of time spe nt in counselling and/or direct pt care on unit) . Coding Level of Care Code Acute Hospital Internship for Srinivas Diaz Diagnoses Drug overdose T50.902A Encounter type: initial encounter Injury intent: intentional self-harm Major depressive disorder, recurrent episode F33.9 Methamphetamine dependence F15.20
[2019-05-03] MEDS: fluoxetine 10 mg Capsule PO (13:06)
[2019-05-03 14:00] VITALS: BP 118/79; PULSE 87; RESP 20; TEMP 37.2; O2SAT 99
[2019-05-03] MEDS: trazodone 50 mg Tablet PO (20:50)
[2019-05-04 06:00] VITALS: BP 112/70; PULSE 68; RESP 18; TEMP 36.8; O2SAT 99
[2019-05-04] MEDS: fluoxetine 10 mg Capsule PO (08:18)
[2019-05-04 14:00] VITALS: BP 100/65; PULSE 116; RESP 20; TEMP 36.4; O2SAT 95
[2019-05-04] MEDS: acetaminophen 325 mg Tablet 650 MG PO ×2 (14:48→18:41)
--- NOTE | 2019-05-04 16:14 | PM.NPN ---
Subjective NPU Subjective: Interval history: The patient is in better spirits today. She is more organized in her thinking and begins to realize the consequences of what she has done. She misses her children but no one put her in an ICU bed but herself. She may be motivated to actually change. At the present time she denies suicidal or homicidal ideation, plan or intent. I think she can go home tomorrow. Medications: Reviewed: Yes Medication Review Details: Current Medications Acetaminophen (Tylenol) 650 mg PO Q4H PRN PRN Reason: MILD PAIN Last Admin: 05/04/19 14:48 Dose: 650 mg Documented by: Benztropine Mesylate (Cogentin) 1 mg PO BID PRN PRN Reason: Mild Extrapyramidal symptoms Camphor/Menthol/Phenol (Blistex) 1 applic TOPICAL Q1H PRN PRN Reason: DRYNESS Denture Adhesive (Fixodent) 1 applic DENTAL PRN PRN PRN Reason: denture adhesive Last Admin: 05/02/19 16:37 Dose: 1 tube Documented by: Diphenhydramine HCl (Benadryl) 50 mg IM ONCE PRN PRN Reason: Severe Extrapyramidal Symptoms Diphenhydramine HCl (Benadryl) 50 mg IM Q4H PRN PRN Reason: Severe Aggression Fluoxetine HCl (Prozac) 10 mg PO DAILY QUOC Last Admin: 05/04/19 08:18 Dose: 10 mg Documented by: Haloperidol (Haldol) 5 mg PO Q4H PRN PRN Reason: AGITATION Haloperidol Lactate (Haldol Inj) 5 mg IM Q4H PRN PRN Reason: Severe Aggression Hydroxyzine Pamoate (Vistaril) 50 mg PO Q6H PRN PRN Reason: ANXIETY Lanolin (Lanolin Oint) 1 applic TOPICAL PRN PRN PRN Reason: DRYNESS Last Admin: 05/01/19 18:47 Dose: 1 applic Documented by: Loperamide HCl (Imodium Capsule) 2 mg PO Q6H PRN PRN Reason: DIARRHEA Lorazepam (Ativan) 2 mg IM Q4H PRN PRN Reason: Severe Aggression Nicotine (Nicoderm 21 Mg Patch) 1 patch TRANSDERMA DAILY PRN PRN Reason: NICOTINE WITHDRAWAL Nicotine Polacrilex (Nicorette) 2 mg BUCCAL Q2H PRN PRN Reason: NICOTINE WITHDRAWAL Olanzapine (Zyprexa Zydis) 5 mg PO Q4H PRN PRN Reason: Agitation/Psychosis Ondansetron HCl (Zofran) 4 mg PO Q6H PRN PRN Reason: NAUSEA AND VOMITING Mental Status Exam MSE Comments: The patient presents clean and organized. Mood is sad; she misses her children. Affect is tearful. When she gets through her grief she smiles and makes a joke. Thought processes are integrated and free of any racing, blocking or looseness of association. There is no evidence of psychosis, such as but not limited to hallucinations, delusions or ideas of reference. Speech is of normal rate and volume, without dysarthria, aprosody or pressure. Cognitive functions, disorientation, recent and remote memory, ability to reason are adequate. Insight and judgment remain impaired. Vitals/I&O/Wt Last Vital Signs Temp 97.6 F 05/04/19 14:00 Pulse 116 H 05/04/19 14:00 Resp 20 H 05/04/19 14:00 BP 100/65 05/04/19 14:00 Pulse Ox 95 05/04/19 14:00 Physical Exam Urinary Catheter Management^: Erazo: Cath Placed During This Visit: yes Urethral Indwelling: No Urinary Catheter Date of Insertion: 05/01/19 Urinary Catheter Time of Insertion: 00:33 Data NPU : 05/01/19 05:49 05/01/19 05:49 A&P Assessment and plan (1) Methamphetamine dependence: Referral for outpatient rehab services Status: Acute Code(s): F15.20 - Other stimulant dependence, uncomplicated (2) Major depressive disorder, recurrent episode: Referral to [facility] [place] for continuation of psychopharmacology. Status: Acute Code(s): F33.9 - Major depressive disorder, recurrent, unspecified Involuntary Hold Information 96 Hour Hold: 96 Hour Involuntary Admission: No 21 Day Hold: 21 Day Involuntary Hold: No Other Hold: Other Involuntary Hold (indicate): No Attestations NPU Medical Necessity Statement*: I anticipate 1 or 2 additional midnights. Time Spent in Patient Care: Greater than 35 minutes (>than 50% of time spent in counselling and/or direct pt care on unit). Coding Level of Care Code Acute Assistant Women'S Tennis Coach for Srinivas Diaz Diagnoses Methamphetamine dependence F15.20 Major depressive disorder, recurrent episode F33.9
[2019-05-04] MEDS: hyDROXYzine 25 mg Capsule 50 MG PO (21:19)
--- NOTE | 2019-05-04 21:19 | PC.NURSE ---
Pt given visteril for sleep per pt request.
[2019-05-04 22:00] VITALS: BP 119/82; PULSE 79; RESP 18; TEMP 37.1; O2SAT 99
[2019-05-05 06:00] VITALS: BP 119/73; PULSE 79; RESP 16; TEMP 37.1; O2SAT 99
[2019-05-05] MEDS: fluoxetine 10 mg Capsule PO ×2 (08:37→16:38)
[2019-05-05] MEDS: acetaminophen 325 mg Tablet 650 MG PO (10:33)
[2019-05-05 14:00] VITALS: BP 113/69; PULSE 93; RESP 18; TEMP 37.1; O2SAT 98
--- NOTE | 2019-05-05 16:07 | PM.NDC ---
Diagnoses at Discharge Discharge Diagnosis (1) Methamphetamine dependence: Status: Acute (2) Major depressive disorder, recurrent episode: Status: Acute Reason for Visit Reason for Visit: Reason For Visit: OVERDOSE Brief History: History of Present Illness Mary Peres is a 44 year old female who took some 500 mg of Seroquel and cut her left wrist in an attempt at suicide. She verbalized a desire to . She must have theo for some time on the floor; her CPK was 421 but has been descending since that time. She was diagnosed, naturally, with rhabdomyolysis. The source of the discord and unhappiness is not yet known to me. She does have a past history of depression and prior suicide attempt. There are notes going back to 2009. Hospital Course Hospital Course Mary presented to the emergency room after an overdose and laceration on her wrist. She was admitted to the ICU and was transferred to the neuropsychiatric unit to complete her mental health treatment. She slowly acclimated to the individual, group, and milieu therapy provided. She was started on Prozac and responded to that well. During the hospitalization she had routine laboratory studies which were within normal limits except for a few outliers. Additionally, she had a general medical evaluation which was generally within normal limits and revealed the overdose and the laceration which was treated medically, in the ICU, before a transfer to the neuropsychiatric unit, where no additional medical issues were noted. Discharge Summary At the time of discharge, she was absent lethality, her mood and anxiety were well managed, she denied any psychosis. She endorsed a plan to avoid any drugs of abuse and to follow up with outpatient services to which she was referred. At the time of discharge she was evaluated and deemed to be absent credible lethality, and she had gotten the maximum benefit from an inpatient hospitalization, so she was discharged. Involuntary Hold Information 96 Hour Hold: 96 Hour Involuntary Admission: No 21 Day Hold: 21 Day Involuntary Hold: No Other Hold: Other Involuntary Hold (indicate): No Mental Status Exam MSE Comments: This is a well-nourished, well-developed, white female, with adequate dress, grooming, and eye contact. No abnormal movements. Cooperative with exam in no acute distress. Speech was normal rate and volume. Mood described as ?a lot better?; affect congruent. Thought process, organized. Thought content: patient denied any suicidal or homicidal ideation, there were no delusions reported or noted, patient denied any auditory or visual hallucinations. Attention, concentration, and memory appeared intact but were not formally tested. She is alert and oriented times three. Insight and judgment are improving. Physical Exam Urinary Catheter Management^: Reazo: Cath Placed During This Visit: yes Urethral Indwelling: No Reason for Continuing Indwelling Catheter: Accurate Measurement of Urinary Output in Critically Ill Patients Urinary Catheter Date of Insertion: 05/01/19 Urinary Catheter Time of Insertion: 00:33 Discharge Data Data Completed and Pending: Completed Studies During Hospitalization Category Date Time Status CT head wo con* 7 0450 Routine Cat Scan 05/01/19 03:08 Completed XR chest 1V pat ble 28852 Stat Exams 04/30/19 23:31 Completed Vitals: Last Vital Signs Temp 98.8 F 05/05/19 14:00 Pulse 93 05/05/19 14:00 Resp 18 05/05/19 14:00 BP 113/69 05/05/19 14:00 Pulse Ox 98 05/05/19 14:00 Discharge Plan Discharge Patient Disposition: Home, Self-Care Condition: Stable Prescriptions: New fluoxetine 20 mg Capsule 20 mg PO DAILY 30 Days Qty: 30 RF: 1 hydroxyzine pamoate 50 mg capsule 50 mg PO Q6H PRN (Reason: Anxiety) 30 Days Qty: 120 RF: 1 Discharge Orders: Discharge Order (Routine); Ordered 05/05/19 Ordered By: Alonso Oswald [place]: [facility] [Outside] (go sometime within the walk-in hours and request initial intake. walk-in hours: Thursday though Thursday 7:30 a.m-2:30 p.m. ) Pedro Pablo Pierre MD [Primary Care Provider] - Discharge Diet: Regular Discharge Activity: Resume usual activity Patient Instructions: Fluoxetine (By mouth), Hydroxyzine Pamoate (By mouth) Activity Restrictions/Additional Instructions: You may follow-up with a provider of choice for outpatient mental health services to get refills on your medicine and have individual therapy if you want. Be sure to go to a provider as soon as possible to make sure you are established with care in order to get your medications. It is important to not wait until you are out of your medicine before you do that. If you decide to go to [facility] for outpatient mental health services you could see if you qualify for their financial assistance to pay for the services. If you decide you need substance abuse treatment, you could consider [facility], the rehab here in [place], [place]. [facility] [address] [place] [address] Do go to the NA meetings to help your recovery! (You said that you are aware of when and where they meet) Discharge Date/Time: 05/05/19 19:47 Discharge Attestations NPU Time Spent in Discharge Care*: less than 30 min Specific Discharge Activities: Specific discharge activities: educating patient, discussing with wrapper caser/social workers/dc planners, documenting/other paperwork and evaluating patient/reviewing data Coding Level of Care Code Acute Hourly Manager for Srinivas Fwd Diagnoses Methamphetamine dependence F15.20 Major depressive disorder, recurrent episode F33.9
--- NOTE | 2019-05-05 19:50 | PC.NURSE ---
pt escorted to waiting private vehicle at ER entrance.
== END 2019-05-05 19:47 | disposition home or self-care (01) | DRG 885 ==
LOC: ER 05-01 01:38 → ICU 05-01 05:41 → NP 05-02 17:06
PROVIDERS: Family Medicine; Admitting Provider Student in an Organized Health Care Education/Training Program; Emergency Provider Emergency Medicine; Family Provider Family Medicine; PCP Family Medicine; Visit Provider Psychiatry & Neurology Psychiatry
DX: F33.9 Major depressive disorder, recurrent, unspecified (principal); F15.20 Other stimulant dependence, uncomplicated; M62.82 Rhabdomyolysis; N17.9 Acute kidney failure, unspecified; T50.902A Poisoning by unspecified drugs, medicaments and biological substances, intentional self-harm, initial encounter; I95.9 Hypotension, unspecified; R41.82 Altered mental status, unspecified; M79.7 Fibromyalgia
CPT/HCPCS: 12345; 36415; 36600; 51702; 70450; 71045; 80048; 80053; 80156; 80164; 80178; 80185; 80306; 80307; 81001; 82550; 82803; 83735; 84443; 84484; 84703; 85025; 85610; 85730; 93005; 93010; 99284; J2270; J7030